=== PATIENT | female | born 1980 | race Caucasian/White ===

== ENCOUNTER 2018-12-12 14:46 | Observation (INO) ==
--- NOTE | 2018-12-11 22:16 | Discharge Summary ---
Orders not resulted at time of discharge: Pending orders 12/12/18 01:00 XR knee RT 1-2V [XR] Routine Hemoglobin and Hematocrit [HEME] Routine Date of Encounter: 12/16/18 Time of Encounter: 12:30 - Discharge Diagnosis (1) Osteoarthritis of right knee Priority: Primary Status: Chronic Qualifiers: Osteoarthritis type: unspecified Qualified Code(s): M17.11 - Unilateral primary osteoarthritis, right knee (2) Status post total right knee replacement Priority: Primary Status: Acute (3) Cerebral palsy Priority: Secondary Status: Chronic Qualifiers: Cerebral palsy type: unspecified type Qualified Code(s): G80.9 - Cerebral palsy, unspecified (4) Spasticity Priority: Secondary Status: Chronic (5) Presence of intrathecal pump Priority: Secondary Status: Chronic (6) Obesity Priority: Secondary Status: Chronic Qualifiers: Obesity type: unspecified obesity type Obesity classification: adult class 3 (BMI >= 40) Serious obesity comorbidity presence: unspecified whether serious comorbidity present Body mass index: unspecified BMI Qualified Code(s): E66.01 - Morbid (severe) obesity due to excess calories (7) HTN (hypertension) Priority: Secondary Status: Chronic Qualifiers: Hypertension type: unspecified Qualified Code(s): I10 - Essential (primary) hypertension - Hospital Course Hospital course: Ms. Villalpando is a 38 year old female Date of procedure: 12/12/18 Pre-op diagnosis: Right knee arthritis Post-op diagnosis: same Procedure: Right robotic-assisted Total knee replacement patient progressed well following TKR. Concern for DVT ruled out with doppler. Repeat labwork found to be in acceptable ranges. Discharge to [facility] for rehabilitation. Vital Signs Temp Pulse Resp BP Pulse Ox 12/15/18 14:26 98.3 F 104 20 126/78 98 12/15/18 11:25 98.0 F 110 24 123/79 99 12/15/18 06:35 98.8 F 96 16 114/76 99 12/15/18 02:54 99.3 F 105 16 112/71 98 12/14/18 23:03 98.5 F 111 17 113/74 98 12/14/18 20:11 98.6 F 96 17 113/73 99 Intake and Output 12/15/18 12/15/18 12/15/18 07:59 15:59 23:59 Intake Total 540 / 540 Output Total 300 / 300 800 / 800 Balance -300 / -300 -260 / -260 Intake: Oral 540 / 540 Output: Urine 300 / 300 800 / 800 Other: Meal Breakfast Percent of Meal Consumed 30% Stool Size Large Stool Consistency formed Stool Color Brown Short CBC 12/15/18 12/15/18 Range/Units 14:38 10:23 WBC 10.3 13.1 H (4.3-11.1) K/mcL Hgb 10.4 L 11.2 L (11.5-15.4) g/dL Hct 32.1 L 33.8 L (35.3-44.9) % Plt Count 303 406 H D (140-400) K/mcL Neutrophils # 7.3 9.8 H (1.6-8.9) K/mcL BMP 12/15/18 Range/Units 10:23 Sodium 136 (136-145) mEq/L Potassium 3.6 (3.5-5.1) mEq/L Chloride 100 (98-107) mEq/L Carbon Dioxide 26 (23-29) mEq/L BUN 7 (6-20) mg/dL Creatinine 0.41 L (0.60-1.20) mg/dL Glucose 87 (70-105) mg/dL Calcium 10.0 (8.6-10.3) mg/dL - Time Spent with Patient Total time spent providing and/or coordinating discharge services: - Discharge Medications Home Medications: Diphenoxylate/Atropine [Lomotil 2.5 mg/0.025 mg] 1 tab PO QID PRN 12/14/16 [History] Aspirin Enteric Coated [Aspirin EC] 325 mg PO BID 10 Days #20 tablet. 12/12/18 [Rx] Baclofen [Lioresal Intrathecal Pump] 1 each IT AD 12/12/18 [History] Docusate Sodium [Colace] 100 mg PO BID 5 Days #10 capsule 12/12/18 [Rx] Lisinopril [Zestril] 10 mg PO DAILY 12/12/18 [History] Loperamide [Imodium] 2 mg PO DAILY PRN 12/12/18 [History] OxyCODONE Immed Rel [Roxicodone 5 MG] 5 mg PO Q6HR PRN 7 Days #28 tablet 12/12/18 [Rx] Lidocaine Patch [Lidoderm 5% patch] 1 each TP DAILY adh..patch 12/15/18 [Rx] Naproxen 500 mg PO BID PRN 7 Days #14 12/15/18 [Rx] Allergies/Adverse Reactions: Allergy/AdvReac Type Severity Reaction Status Date / Time No Known Allergies Allergy Verified 12/12/18 15:08 Date of admission: 12/12/18 Primary care physician: Courtney Hoskins DO Discharging clinician: Jay Jay Sanches Anticipated date of discharge: 12/15/18 - VTE Documentation of Mechanical Device: Venous foot pump, device - Patient Status Disposition: Transfer Inpatient Rehab Fac Condition: Good Functional capacity at discharge: uses cane/walker Overall status at discharge: patient is progressing back to baseline - Discharge Instructions Follow Up With: Courtney Hoskins DO [Primary Care Provider] - Additional Instructions: Discharge Instructions: Total Knee Replacement Please call [facility] ([phone]), your Primary Care Physician, or report to the Emergency Room if you have any of the following symptoms: Nausea, vomiting, fever greater that 101.5, swelling, chest pain, shortness of breath, increased pain/redness/drainage/odor for your incision site, numbness/tingling, or any other concerning symptoms. ACTIVITY:Weight-bearing as tolerated. You may progress off support (crutches or walker) as tolerated. Incentive Spirometer 10 times an hour. MEDICATIONS: Upon discharge resume your home medications. Take all the medications as prescribed. Take a stool softener if taking narcotic pain medications. Stool softeners are only effective if you drink enough fluids. Drink 6-8 glass of water or fluids a day, unless this is not allowed for another health problem. Despite using stool softeners, if you haven't had a bowel movement in 3 days, please switch to a gentle laxative. Gentle laxatives are sold over the counter. You should have a bowel movement within 24 hours, if not call the office. You will be discharged from the hospital with a prescription for pain medication. You are encouraged to decrease the use of narcotic pain medication as tolerated. Should you require a refill, please call the office. [facility] prescribes narcotic pain medication for only 4-6 weeks after surgery. If you require pain medication beyond this time period, you may be referred to your Primary Care Physician or to the Pain Clinic for further evaluation. Plan ahead for refills on pain medication as many narcotics either need to be picked up at the office or mailed. It is best to call 48-72 hours in advance of needing a prescription refill so you don't run out of medication. To help control the post-operative pain, you may take NSAIDs (Aleve,Advil, Motrin, Ibuprofen, Naprosyn) or Tylenol as prescribed on the bottle in addition to the pain medication. ANTICOAGULATION (blood thinners): Continue your Aspirin, Lovenox or Coumadin as prescribed to help prevent a blood clot in the leg or in the lungs. As long as your incision remains dry and you tolerate the NSAIDs (Aleve, Advil, Motrin, ibuprofen, naprosyn), it is OK to use the NSAIDS while you are taking your anticoagulation medication. Should your incision start to drain, stop the NSAID and contact our office. Common symptoms of blood clot in the legs include: localized pain, swelling, calf tenderness, redness or discoloration of the skin. Blood clot in the lung symptoms include: shortness of breath, rapid pulse, sweating, and chest pain that worsens with deep breathing, coughing up blood, lightheadedness, feelings of anxiety. If you experience any of these symptoms notify your physician immediately, go to the emergency room, or if having trouble breathing, call 911. WOUND CARE: Leave the dressing on for 7 to 10days. You may change the dressing if it becomes saturated greater than 50%. Do not get the dressing wet at anytime. Wash your hands with antibacterial soap, rinse and dry prior to any wound care. If you have sally the visiting nurse or rehab facility can remove the stapes 10-14 days after surgery and place steri-strips across the wound. Leave the steri-strips in place until they fall off on their won. You may let water from the shower run on top of the steri-strips. If you do not have a visiting nurse or rehab facility, you will need to return to the office at 10-14 days for the sally to be removed. If you have itching or redness around the dressing call the office. FOLLOW-UP: Please follow up with your surgeon in the orthopedic clinic in 4 weeks from the day of surgery. If you have sally that need to be removed, you will need to come back to the office in 10-14 days from the day of surgery. - Diet and Activity Activity: as per physical therapy Diet: advance to your usual diet
[2018-12-12] MEDS ORDERED: CeFAZolin Syr 2,000MG/20 ML 2,000 MG/20 ML SYRINGE IVPB ONE (15:02)
[2018-12-12] MEDS ORDERED: Ondansetron 4 MG/2 ML VIAL IVP ONE (15:06)
[2018-12-12] MEDS ORDERED: *HR* Promethazine 25 MG/ML VIAL IVP PRN ×2 (15:06→20:06)
[2018-12-12] MEDS ORDERED: *HR* OxyCODONE Immed Rel 5 MG TABLET PO PRN (15:06)
--- NOTE | 2018-12-12 15:09 | Anesthesia Evaluation PreOp ---
Date of Encounter: 12/12/18 Time of Encounter: 15:09 - Past History Planned Operation: RIGHT TKA Cardiac History: HTN Pulmonary History: Denies Any Significant HX TRANSPORTATION ENGINEER History: Other (MILD CP, CHRONIC SPASMS, INTRATHECAL BACLOFEN PUMP) Other Medical History: Other (MORBID OBESITY, BMI 41) Anesthesia History: No Prior Anesthetic Complications, Past Anesthesia : No Test: Negative Alcohol Use: none Drug use: none Medications and Allergies Diphenoxylate/Atropine [Lomotil 2.5 mg/0.025 mg] 1 tab PO QID PRN 12/14/16 [History] Aspirin Enteric Coated [Aspirin EC] 325 mg PO BID 10 Days #20 tablet.dr 12/12/18 [Rx] Baclofen [Lioresal Intrathecal Pump] 1 each IT AD 12/12/18 [History] Docusate Sodium [Colace] 100 mg PO BID 5 Days #10 capsule 12/12/18 [Rx] Lisinopril [Zestril] 10 mg PO DAILY 12/12/18 [History] Loperamide [Imodium] 2 mg PO DAILY PRN 12/12/18 [History] Naproxen 500 mg PO BID 12/12/18 [History] OxyCODONE Immed Rel [Roxicodone 5 MG] 5 mg PO Q6HR PRN 7 Days #28 tablet 12/12/18 [Rx] Allergy/AdvReac Type Severity Reaction Status Date / Time No Known Allergies Allergy Verified 12/12/18 15:08 - Meds/Allergy Pre-op Review Medications Reviewed: Yes Allergies Reviewed: Yes Beta Blockers on Current Med List: No Anesthesia Results - Labs Laboratory Tests 12/01/18 12/01/18 15:43 15:43 Hgb 14.0 Plt Count 375 Potassium 3.8 Creatinine 0.41 L Est GFR (Non-Af Amer) > 60 Anesthesia Exam Vital Signs/O2 Sat/Glucose, Most Recent Temp Pulse Resp BP Pulse Ox 97.8 F 106 18 132/81 99 12/12/18 15:16 12/12/18 15:16 12/12/18 15:16 12/12/18 15:16 12/12/18 15:16 Weight: 102 KG - BMI 41 NPO (# of Hours): > 8 - HEENT Mallampati: I Teeth: Normal Oral Opening: Greater than 3 - Cardiac Rhythm: Regular - Pulmonary Breath Sounds: bilateral Clear Respiratory Effort: Symmetrical Anesthesia Assess/Plan ASA Score: 3 Anesthetic Plan: General, Regional Nerve Block Regional Nerve Block Plan: HARRIS Trimble Reason for No Neuroaxial/Regional Block: Other (INTRATHECAL PUMP, AGE PREDISPOSITION FOR PDPH) Monitoring Plan: Standard Monitors Recovery Plan: PACU
[2018-12-12] MEDS ORDERED: Ringers Solution, Lactated 1,000 ML IVC SCH ×2 (15:15→20:06)
[2018-12-12] MEDS ORDERED: Lidocaine -MPF 2% 2 ML VIAL ONE (15:23)
[2018-12-12] MEDS ORDERED: *HR* Midazolam HCl 2 MG/2 ML VIAL ONE (15:23)
[2018-12-12] MEDS ORDERED: Ondansetron 4 MG/2 ML VIAL ONE (15:23)
[2018-12-12] MEDS ORDERED: *HR* Propofol 200 MG/20 ML VIAL IVP ONE (15:23)
[2018-12-12] MEDS ORDERED: *HR* Rocuronium Bromide 50 MG/5 ML VIAL ONE (15:23)
[2018-12-12] MEDS ORDERED: *HR* Succinylcholine 200 MG/10 ML VIAL IVP ONE (15:23)
[2018-12-12] MEDS ORDERED: *HR* FentaNYL (PF) 100 MCG/2 ML VIAL ONE (15:23)
[2018-12-12] MEDS ORDERED: Dexamethasone 4 MG/ML VIAL ONE (15:23)
[2018-12-12] MEDS ORDERED: Acetaminophen IV 1,000 MG/100 ML INFUS..BTL IVPB ONE (15:24)
[2018-12-12] MEDS ORDERED: *HR* Methadone 10 MG TABLET PO ONE (15:24)
[2018-12-12] MEDS ORDERED: Pregabalin 75 MG CAPSULE PO ONE (15:24)
--- NOTE | 2018-12-12 15:34 | History & Physical Report ---
Date of Encounter: 12/12/18 Time of Encounter: 15:34 24 Hour HP Update - Instructions Instructions: If the History and Physical is less than 30 days old and was completed prior to A.M. admission and or procedure and has NOT been updated on calendar day of procedure please complete this update prior to performing procedure. - Update Patient reports changes in Medical Condition: No Changes in examination, assessment, or condition: No Changes in Medication: No Preop tests/diagnostics Reviewed: Yes Surgery Remains Indicated: Yes Consent for Planned Operative Procedure(s) Verified: Yes - Pre-Operative Checklist Preoperative Checklist Indicated: No Prophylactic Antibiotic Ordered: Yes Is VTE Prophylaxis Indicated?: Yes
[2018-12-12] MEDS ORDERED: Ethanol\\Acetic Acid\\Na Ace\\Ben 1,000 ML IRRIG.SOLN IR ONE (15:42)
[2018-12-12] MEDS ORDERED: ROPIVACAINE HCL/PF 0.5% 30 ML VIAL ONE (15:53)
[2018-12-12] MEDS ORDERED: Bupivacaine/Clonidine Syringe 1 EACH SYRINGE ONE (15:54)
[2018-12-12] MEDS ORDERED: KETAMINE HCL 50 MG/ML SYRINGE IV ONE (15:58)
[2018-12-12] MEDS ORDERED: Tranexamic Acid 1,000 MG/10 ML VIAL ONE (16:43)
[2018-12-12] MEDS ORDERED: *HR* HYDROMORPHONE 2 MG/ML VIAL ONE (16:50)
--- NOTE | 2018-12-12 17:05 | Anesthesia Procedures ---
Date of Encounter: 12/12/18 Time of Encounter: 16:21 Procedures: Anesthesia - Nerve Block Procedure Date: 12/12/18 Time: 16:21 Allergies/Adv Reactions: Allergies No Known Allergies Allergy (Verified 12/12/18 15:08) Pre-op Diagnosis: right knee arthropathy Surgical Procedure: right total knee arthroplasty, robotic Checklist: Correct Patient Identifier, Correct procedure, History checked Correct side: Right Blood Thinner: No Monitor Applied: EKG, BP, Pulse Oximetry Supplemental Oxygen via Nasal Cannula (L/min): 2 Sedation: Versed (mg): 2 Sedation: Fentanyl (mcg): 100 Indication: Post Op Analgesia Pre-op Neuro Deficits: No Block Type: Other (addcutor canal and ipack) Catheter placed: No Sterile Technique: Yes Ultrasound used: Yes Anatomy identified: Yes Visual spread of Local: Yes Blood on Needle Aspiration: No Smooth Injection of Local: Yes Pain with Injection of Local: No Prep: Chlorhexadine Needle: 22 x 50 mm Stimuplex Local: 0.25% Bupivicaine w/Clonidine 20 mcg/cc, Ropivacaine Volume (cc): 50 Number of Attempts: 1 Complications: None/effective block
[2018-12-12] MEDS ORDERED: Ketorolac 30 MG/ML VIAL ONE (17:10)
--- NOTE | 2018-12-12 17:30 | Orthopedic Operative Note ---
Date of procedure: 12/12/18 Pre-op diagnosis: Right knee arthritis Post-op diagnosis: same Procedure: Procedure: Right robotic-assisted Total knee replacement Estimated blood loss: 200 cc Hardware: Metal and polyethylene replacement. [place] Femur: 4 Tibia: 4 TS insert: 9 Patella: 36 Exam Under anesthesia: 17 degree flexion contracture 2 degrees varus as calculated by the robot full flexion and no instability Procedural Notes: Grade 4 arthritic changes all 3 compartments. Operative procedure: The patient was brought to the operating room and placed on the operating room table. After general anesthesia was administered the operative knee was examined. Findings were noted in the exam under anesthesia. The operative extremity was prepped and draped in sterile surgical fashion. The patient received IV antibiotics prior to skin incision. A standard midline incision was made centered over the patella. The incision was made through the skin and subcutaneous tissue. A medial parapatellar tendon approach was performed. Care was taken to preserve tissue along the medial aspect of the patella. And to protect the patella tendon. The deep MCL was released off the medial tibia. The infra patella fat pad was excised. The patella was everted and cut was made at the level of the insertion of the quadriceps and patella tendon. The patella was sized the guide was seated and the lug holes are drilled. Knee was brought into flexion. Patient noted to have grade 4 arthritic changes all 3 compartments. Steinmann pins were placed in the tibia and the femur for the tibial and femoral arrays respectively. Checkpoints were also placed in the tibia and the femur for calculation purposes. The knee including the femur and the tibial registered. Osteophytes, ACL and PCL were excised at this point. Extension and flexion were assessed with a valgus stress components were adjusted on the computer to balance the knee. Femoral cuts were made first with robotic assistance, these included the anterior cut posterior cuts chamfer cuts. Tibial cut was then performed with robotic assistance as well. Bone fragments were removed, as well as the medial and lateral meniscus. The size 4 femoral guide was seated box cut was made lug holes are drilled. The size 4 tibial tray was seated and prepared with the fin cutter. Trial reduction with the 9 TS Giovanna revealed extension of 0 degree and 3 degree varus full flexion. No varus valgus instability. Trial reduction revealed excellent patella tracking. All trial components were removed all bony surfaces were irrigated. The Tibia was seated followed by the femur, The selected Giovanna size was seated and secured patella. Patient had similar findings for motion and stability. The knee was closed by the PA. The knee was then irrigated out with 2 L of pulse irrigation. The extensor mechanism was closed with #2 FiberWire suture and #2 PDS suture. The subcutaneous tissue was then irrigated and closed deep with #1 PDS suture superficially with 0 PDS suture and skin was closed with zip tie The patient was then placed in a sterile dressing and a postoperative brace extubated and transferred to recovery room in stable condition. Anesthesia: GETA Surgeon: Jay Jay Sanches Was there an assistant clinical nurse manager present: No Estimated blood loss (cc): 200 Condition: stable Disposition: PACU
[2018-12-12] MEDS ORDERED: *HR* PHENYLEPHRINE 1,000 MCG/10 ML SYRINGE IVP ONE (17:36)
[2018-12-12] MEDS: *HR* HYDROmorphone (PF) 1 MG/ML SYRINGE IVP PRN ×2 (18:21→19:00)
[2018-12-12 18:44] LABS: Hematocrit 34.3 % (35.3-44.9); Hemoglobin 11.5 g/dL (11.5-15.4)
--- NOTE | 2018-12-12 19:32 | Anesthesia Evaluation Post Op ---
Date of Encounter: 12/12/18 Time of Encounter: 19:30 - Vital Signs Vital Signs: Vital Signs/O2 Sat/Glucose, Most Current Temp Pulse Resp BP Pulse Ox 12/12/18 19:19 98.9 F 98 12 147/78 100 12/12/18 19:09 98.9 F 98 12 149/61 100 12/12/18 18:59 96 12 138/71 100 12/12/18 18:49 99 12 126/75 100 12/12/18 18:39 98.9 F 101 12 129/66 100 12/12/18 18:29 93 12 131/68 97 12/12/18 18:19 93 12 127/72 97 12/12/18 18:09 98.4 F 92 12 129/74 98 12/12/18 16:18 105 139/85 100 - Lungs Lungs: Clear Ascult./Percussion - Airway Airway: Non-obstructed - Cardiovascular Regular Rate - Mental Status Mental Status: Alert & Oriented, Answers Appropriately - Pain Pain Scale: 1 - Nausea Vomiting Nausea Vomiting: Not Present - Hydration Hydration: Ice chips - Discharge PostOp Status: Transfer Patient to floor
[2018-12-12] MEDS ORDERED: Naloxone 0.4 MG/ML INJ IVP PRN (20:06)
[2018-12-12] MEDS ORDERED: Diphenoxylate/Atropine 1 TAB TABLET PO PRN (20:06)
[2018-12-12] MEDS ORDERED: traMADol 50 MG TABLET PO PRN (20:06)
[2018-12-12] MEDS ORDERED: Sennosides 8.6 MG TABLET PO PRN (20:06)
[2018-12-12] MEDS ORDERED: Temazepam 15 MG CAPSULE PO PRN (20:06)
[2018-12-12] MEDS ORDERED: MOM Conc 10 ML UD.LIQ PO PRN (20:06)
[2018-12-12] MEDS ORDERED: Ondansetron 4 MG/2 ML VIAL IVP PRN (20:06)
[2018-12-12] MEDS: Ascorbic Acid 500 MG TABLET PO SCH (22:33)
[2018-12-12] MEDS: *HR* Enoxaparin 30 MG/0.3 ML SYRINGE SQ SCH (22:33)
[2018-12-12] MEDS: BACLOFEN IT SCH (22:34)
[2018-12-12] MEDS: *HR* OxyCODONE/APAP 5/325 TABLET PO PRN (22:36)
[2018-12-13] MEDS: *HR* Enoxaparin 30 MG/0.3 ML SYRINGE SQ SCH ×2 (05:11→17:20)
[2018-12-13] MEDS ORDERED: Chloraseptic Spray 177 ML BOTTLE MM PRN (06:44)
--- NOTE | 2018-12-13 06:52 | Orthopedics Progress Note ---
Date of Encounter: 12/13/18 Time of Encounter: 06:52 Subjective Interval history: Patient was seen this morning doing well without complaints. Afebrile vital signs stable. Operative extremity: Neurovascularly intact Dressing clean dry and intact Calves nontender Assessment and plan: Continue with postoperative care Hematocrit 34 Objective Vital signs: Vital Signs Temp Pulse Resp BP Pulse Ox 12/13/18 04:07 98.7 F 107 16 120/76 96 12/12/18 23:15 98.5 F 110 16 122/78 95 12/12/18 22:15 92 16 125/80 97 12/12/18 21:15 77 16 147/77 97 12/12/18 20:45 78 14 108/43 96 12/12/18 20:15 97.7 F 96 14 131/82 97 12/12/18 19:19 98.9 F 98 12 147/78 100 12/12/18 19:09 98.9 F 98 12 149/61 100 12/12/18 18:59 96 12 138/71 100 12/12/18 18:49 99 12 126/75 100 12/12/18 18:39 98.9 F 101 12 129/66 100 12/12/18 18:29 93 12 131/68 97 12/12/18 18:19 93 12 127/72 97 12/12/18 18:09 98.4 F 92 12 129/74 98 12/12/18 16:18 105 139/85 100 12/12/18 15:16 97.8 F 106 18 132/81 99 Intake and Output 12/12/18 12/12/18 12/13/18 15:59 23:59 07:59 Intake Total 100 / 100 100 / 100 Output Total 400 / 400 400 / 400 Balance -300 / -300 -300 / -300 Intake: IV Fluids 100 / 100 Ancef 2,000 MG In 0.9 % Sodium 100 / 100 Chloride 100 ML @ 200 mls/hr IVPB Q8H [facility] Rx#:[id number] Oral 100 / 100 Output: Urine 200 / 200 400 / 400 Estimated Blood Loss 200 / 200 Other: Weight 102.058 kg 102.1 kg Patient Weight 12/13/18 23:59 Weight 102.1 kg - Labs CBC & BMP: 12/12/18 18:24 Labs: Abnormal lab results Hct 34.3 % (35.3-44.9) L 12/12/18 18:24 - VTE Documentation of Mechanical Device: Venous foot pump, device Consult Discharge Plan - Plan Referrals: Courtney Hoskins DO [Primary Care Provider] - Prescriptions: Aspirin Enteric Coated [Aspirin EC] 325 mg PO BID 10 Days #20 tablet. Docusate Sodium [Colace] 100 mg PO BID 5 Days #10 capsule OxyCODONE Immed Rel [Roxicodone 5 MG] 5 mg PO Q6HR PRN 7 Days #28 tablet PRN Reason: Severe Pain
[2018-12-13] MEDS: Multivit/Ca/Min/Fe/FA 1 TAB TABLET PO SCH (09:45)
[2018-12-13] MEDS: Ascorbic Acid 500 MG TABLET PO SCH ×2 (09:45→16:53)
[2018-12-13] MEDS: *HR* OxyCODONE/APAP 5/325 TABLET PO PRN ×2 (09:53→18:11)
[2018-12-13 10:35] LABS: Hematocrit 32.5 % (35.3-44.9); Hemoglobin 11.2 g/dL (11.5-15.4)
[2018-12-13 10:55] LABS: BUN/Creatinine Ratio 28 (6-26); Blood Urea Nitrogen 13 mg/dL (6-20); Calcium 8.9 mg/dL (8.6-10.3); Carbon Dioxide 22 mEq/L (23-29); Chloride 104 mEq/L (98-107); Glucose 137 mg/dL (70-105); Osmolality,Calculated 284 (280-300); Potassium 4.5 mEq/L (3.5-5.1); Sodium 136 mEq/L (136-145); eGFR For Non-African Americans > 60 (> 60)
--- NOTE | 2018-12-13 12:55 | Event Note ---
Date of Encounter: 12/13/18 Time of Encounter: 12:55 POD#1 Date of procedure: 12/12/18 Pre-op diagnosis: Right knee arthritis Post-op diagnosis: same Procedure: Right robotic-assisted Total knee replacement Patient seen at bedside. Spouse at bedside. A&Ox3 Dressing and incision c/i - bleeding noted from distal incision. Zipline and sally intact No calf tenderness, erythema, or warmth. Neurovascularly intact b/l LE. Labwork and medications reviewed. Pain control: Adequate Participating in PT. All questions and concerns addressed. Educated on use of incentive spirometer, ambulation, and hydration. Patient educated on post-operative restrictions and care. Addressed: bleeding - [place] placed to distal incision. Dressings placed. Encourage knee immobilization over night with pressure dressing. D/C plan:. ECF
--- NOTE | 2018-12-13 12:57 | Physician Discharge Referral ---
ExtendedCare Referral Info Transfer To: [facility] Provider in Charge: Dr. Jay Jay Sanches - Diagnosis (1) Osteoarthritis of right knee Priority: Primary Status: Chronic (2) Status post total right knee replacement Priority: Primary Status: Acute (3) Cerebral palsy Priority: Secondary Status: Chronic (4) Spasticity Priority: Secondary Status: Chronic (5) Presence of intrathecal pump Priority: Secondary Status: Chronic (6) Obesity Priority: Secondary Status: Chronic (7) HTN (hypertension) Priority: Secondary Status: Chronic Expected Duration of Placement: less than 30 days Prognosis: Fair Aware of Diagnosis: Patient Aware of Prognosis: Patient - Transfer Medications Prescriptions: OxyCODONE Immed Rel [Roxicodone 5 MG] 5 mg PO Q6HR PRN 7 Days #28 tablet PRN Reason: Severe Pain Aspirin Enteric Coated [Aspirin EC] 325 mg PO BID 10 Days #20 tablet. Docusate Sodium [Colace] 100 mg PO BID 5 Days #10 capsule Home Medications: Diphenoxylate/Atropine [Lomotil 2.5 mg/0.025 mg] 1 tab PO QID PRN 12/14/16 [History] Aspirin Enteric Coated [Aspirin EC] 325 mg PO BID 10 Days #20 tablet. 12/12/18 [Rx] Baclofen [Lioresal Intrathecal Pump] 1 each IT AD 12/12/18 [History] Docusate Sodium [Colace] 100 mg PO BID 5 Days #10 capsule 12/12/18 [Rx] Lisinopril [Zestril] 10 mg PO DAILY 12/12/18 [History] Loperamide [Imodium] 2 mg PO DAILY PRN 12/12/18 [History] Naproxen 500 mg PO BID 12/12/18 [History] OxyCODONE Immed Rel [Roxicodone 5 MG] 5 mg PO Q6HR PRN 7 Days #28 tablet 12/12/18 [Rx] Allergies/Adverse Reactions: Allergy/AdvReac Type Severity Reaction Status Date / Time No Known Allergies Allergy Verified 12/12/18 15:08 - Respiratory Orders Smoking Cessation: Smoking cessation has been advised. For more information, call the [place] Tobacco Quit Line at 4-642-JLRI-NOW. - Ancillary Orders May use pressure relief devices daily prn, May go on LUIS w/family/respon alliance party w/meds at nurse discretion PRN, May consult with Dentist, Dry Cell Sealer, Quality Engineer Medical Device PRN - Advance Directives Living Will: No Power of Handle Bender for Health Care: No - Mobility Orders Chair, Ambulate - Rehabiliation Orders Rehab Potential: Good Rehab Orders: Evaluation for Physical Therapy, Evaluation for Occupational Therapy Other: Total Knee replacement Precautions x 6 weeks Apply cold therapy wrap 3-6x/day for 20 minutes at a time. Encourage ambulation throughout the day and incentive spirometer 10x/hour. Elevate affected extremity above heart as tolerated. Brace: Wear knee immobilizer at night x 2 weeks. Opsite placed. Keep dressing intact until first follow up appointment. If g reater than 50% saturated, notify office, remove dressing and place appropriate dressing back in place. Leave Zipline intact. Opsite dressing is water resistant, not water-proof. OK to shower, but do not get dressing wet. - Treatments Skin tear care topically daily PRN per policy - Diet Orders Regular CERTIFICATION: I certify that the transfer of the above named patient to an Extended Care Facility is necessary for the continuing treatment of the diagnosis listed. The above information is true and accurate reflection of patient's current condition. Confidential - Redisclosure prohibited without a patient's written consent.
[2018-12-13] MEDS: BACLOFEN IT SCH (21:34)
[2018-12-14] MEDS: *HR* OxyCODONE Immed Rel 5 MG TABLET PO PRN ×3 (04:14→13:00)
[2018-12-14 05:07] LABS: Bilirubin,Urine Negative (Negative); Blood,Urine Negative (Negative); Clarity,Urine Clear (Clear); Color,Urine Yellow (Yellow); Glucose,Urine (UA) Normal (Normal); Ketones,Urine Negative (Negative); Leukocyte Esterase,Urine Negative (Negative); Nitrite,Urine Negative (Negative); Protein,Urine Negative (Neg-Trace); Specific Gravity,Urine 1.008 (1.010-1.025); Urobilinogen,Urine Normal (Normal)
[2018-12-14 08:03] LABS: Basophils % 0.2 %; Eosinophils % 0.1 %; Hematocrit 33.4 % (35.3-44.9); Hemoglobin 10.6 g/dL (11.5-15.4); Immature Granulocytes % 0.4 % (0-4); Lymphocytes # 1.6 K/mcL (0.6-4.6); Lymphocytes % 15.8 %; Mean Corpuscular HGB Conc 31.7 g/dL (31.6-35.5); Mean Corpuscular Hemoglobin 29.2 pg (28.0-33.3); Mean Platelet Volume 11.2 fL (9.4-12.4); Monocytes # 0.9 K/mcL (0.0-1.3); Monocytes % 9.1 %; Neutrophils # 7.7 K/mcL (1.6-8.9); Platelet Count 162 K/mcL (140-400); Red Blood Count 3.63 M/mcL (3.82-4.97); Red Cell Distribution Width 12.3 % (11.5-14.5); Segmented Neutrophils % 74.4 %
[2018-12-14 08:19] LABS: BUN/Creatinine Ratio 22 (6-26); Blood Urea Nitrogen 8 mg/dL (6-20); Calcium 8.6 mg/dL (8.6-10.3); Carbon Dioxide 22 mEq/L (23-29); Chloride 104 mEq/L (98-107); Glucose 116 mg/dL (70-105); Osmolality,Calculated 277 (280-300); Potassium 4.1 mEq/L (3.5-5.1); Sodium 134 mEq/L (136-145); eGFR For Non-African Americans > 60 (> 60)
--- NOTE | 2018-12-14 08:21 | Orthopedics Progress Note ---
Date of Encounter: 12/14/18 Time of Encounter: 08:20 Subjective Interval history: Patient was seen this morning doing well without complaints. Afebrile vital signs stable. Operative extremity: Neurovascularly intact Dressing clean dry and intact Calves nontender Assessment and plan: Continue with postoperative care Hematocrit 33 Objective Vital signs: Vital Signs Temp Pulse Resp BP Pulse Ox 12/14/18 07:01 97.9 F 109 18 100/62 94 12/14/18 04:13 98.4 F 103 17 138/80 98 12/13/18 23:17 98.3 F 106 18 132/82 99 12/13/18 18:43 98.1 F 110 17 122/77 100 12/13/18 15:43 98.1 F 102 15 108/68 98 12/13/18 11:14 99.6 F 105 14 98/55 98 Intake and Output 12/13/18 12/14/18 12/14/18 23:59 07:59 15:59 Intake Total 550 / 550 Output Total 300 / 300 450 / 450 Balance 250 / 250 -450 / -450 Intake: Oral 550 / 550 Output: Urine 300 / 300 450 / 450 Other: Meal Dinner Percent of Meal Consumed 75% # Urine Diapers 1 - Labs CBC & BMP: 12/14/18 07:42 12/14/18 07:42 Labs: Abnormal lab results RBC 3.63 M/mcL (3.82-4.97) L 12/14/18 07:42 Hgb 10.6 g/dL (11.5-15.4) L 12/14/18 07:42 Hct 33.4 % (35.3-44.9) L 12/14/18 07:42 Sodium 134 mEq/L (136-145) L 12/14/18 07:42 Carbon Dioxide 22 mEq/L (23-29) L 12/14/18 07:42 Creatinine 0.36 mg/dL (0.60-1.20) L 12/14/18 07:42 Glucose 116 mg/dL (70-105) H 12/14/18 07:42 Calculated Osmolality 277 (280-300) L 12/14/18 07:42 Ur Specific [place] 1.008 (1.010-1.025) L 12/14/18 04:55 - VTE Documentation of Mechanical Device: Venous foot pump, device Consult Discharge Plan - Plan Referrals: Courtney Hoskins DO [Primary Care Provider] - Prescriptions: Aspirin Enteric Coated [Aspirin EC] 325 mg PO BID 10 Days #20 tablet. Docusate Sodium [Colace] 100 mg PO BID 5 Days #10 capsule OxyCODONE Immed Rel [Roxicodone 5 MG] 5 mg PO Q6HR PRN 7 Days #28 tablet PRN Reason: Severe Pain
[2018-12-14] MEDS: Ascorbic Acid 500 MG TABLET PO SCH ×2 (08:27→17:03)
[2018-12-14] MEDS: Multivit/Ca/Min/Fe/FA 1 TAB TABLET PO SCH (08:27)
[2018-12-14] MEDS: *HR* Enoxaparin 30 MG/0.3 ML SYRINGE SQ SCH ×2 (08:39→17:04)
--- NOTE | 2018-12-14 13:05 | Event Note ---
Date of Encounter: 12/14/18 Time of Encounter: 13:05 POD#2 Date of procedure: 12/12/18 Pre-op diagnosis: Right knee arthritis Post-op diagnosis: same Procedure: Right robotic-assisted Total knee replacement Patient seen at bedside. Spouse at bedside. A&Ox3 Dressing and incision c/i Zipline and sally intact No calf tenderness, erythema, or warmth. Neurovascularly intact b/l LE. Labwork and medications reviewed. Pain control: Adequate Participating in PT. All questions and concerns addressed. Educated on use of incentive spirometer, ambulation, and hydration. Patient educated on post-operative restrictions and care. Addressed: bleeding - [place] placed to distal incision 12/14 which ceased bleeding. D/c plan: ECF pending auth
[2018-12-14] MEDS: BACLOFEN IT SCH (21:33)
[2018-12-15] MEDS: *HR* OxyCODONE/APAP 5/325 TABLET PO PRN ×3 (05:04→18:36)
[2018-12-15] MEDS: *HR* Enoxaparin 30 MG/0.3 ML SYRINGE SQ SCH ×2 (05:05→18:32)
--- NOTE | 2018-12-15 07:59 | Orthopedics Progress Note ---
Date of Encounter: 12/15/18 Time of Encounter: 07:58 Subjective Interval history: Patient was seen this morning doing well without complaints. Afebrile vital signs stable. Operative extremity: Neurovascularly intact Dressing clean dry and intact Calves nontender Assessment and plan: Continue with postoperative care Objective Vital signs: Vital Signs Temp Pulse Resp BP Pulse Ox 12/15/18 06:35 98.8 F 96 16 114/76 99 12/15/18 02:54 99.3 F 105 16 112/71 98 12/14/18 23:03 98.5 F 111 17 113/74 98 12/14/18 20:11 98.6 F 96 17 113/73 99 12/14/18 15:32 99.3 F 116 16 116/72 99 12/14/18 12:13 98.2 F 109 16 104/62 100 Intake and Output 12/14/18 12/14/18 12/15/18 15:59 23:59 07:59 Intake Total 120 / 120 270 / 270 Output Total 650 / 650 300 / 300 Balance 120 / 120 -380 / -380 -300 / -300 Intake: Oral 120 / 120 270 / 270 Output: Urine 650 / 650 300 / 300 Other: Meal Breakfast Dinner Percent of Meal Consumed 35% 60% # Voids 2 1 - Labs CBC & BMP: 12/14/18 07:42 12/14/18 07:42 Labs: Abnormal lab results RBC 3.63 M/mcL (3.82-4.97) L 12/14/18 07:42 Hgb 10.6 g/dL (11.5-15.4) L 12/14/18 07:42 Hct 33.4 % (35.3-44.9) L 12/14/18 07:42 Sodium 134 mEq/L (136-145) L 12/14/18 07:42 Carbon Dioxide 22 mEq/L (23-29) L 12/14/18 07:42 Creatinine 0.36 mg/dL (0.60-1.20) L 12/14/18 07:42 Glucose 116 mg/dL (70-105) H 12/14/18 07:42 Calculated Osmolality 277 (280-300) L 12/14/18 07:42 Ur Specific [place] 1.008 (1.010-1.025) L 12/14/18 04:55 - VTE Documentation of Mechanical Device: Venous foot pump, device Consult Discharge Plan - Plan Referrals: Courtney Hoskins DO [Primary Care Provider] -
[2018-12-15] MEDS: Multivit/Ca/Min/Fe/FA 1 TAB TABLET PO SCH (09:22)
[2018-12-15] MEDS: Ascorbic Acid 500 MG TABLET PO SCH ×2 (09:25→18:32)
[2018-12-15 11:20] LABS: Basophils % 0.3 %; Eosinophils % 0.2 %; Hematocrit 33.8 % (35.3-44.9); Hemoglobin 11.2 g/dL (11.5-15.4); Immature Granulocytes % 0.5 % (0-4); Lymphocytes # 1.8 K/mcL (0.6-4.6); Lymphocytes % 13.7 %; Mean Corpuscular HGB Conc 33.1 g/dL (31.6-35.5); Mean Corpuscular Hemoglobin 28.9 pg (28.0-33.3); Mean Corpuscular Volume 87.3 fL (83.0-100.0); Mean Platelet Volume 11.4 fL (9.4-12.4); Monocytes # 1.4 K/mcL (0.0-1.3); Monocytes % 10.8 %; Neutrophils # 9.8 K/mcL (1.6-8.9); Platelet Count 406 K/mcL (140-400); Red Blood Count 3.87 M/mcL (3.82-4.97); Red Cell Distribution Width 12.4 % (11.5-14.5); Segmented Neutrophils % 74.5 %
[2018-12-15 11:32] LABS: BUN/Creatinine Ratio 17 (6-26); Blood Urea Nitrogen 7 mg/dL (6-20); Carbon Dioxide 26 mEq/L (23-29); Chloride 100 mEq/L (98-107); Glucose 87 mg/dL (70-105); Osmolality,Calculated 279 (280-300); Potassium 3.6 mEq/L (3.5-5.1); Sodium 136 mEq/L (136-145); eGFR For Non-African Americans > 60 (> 60)
--- NOTE | 2018-12-15 12:26 | Event Note ---
Addendum entered and electronically signed by Tashia Montoya PAC 12/15/18 16:45: POD#3 Date of procedure: 12/12/18 Pre-op diagnosis: Right knee arthritis Post-op diagnosis: same Procedure: Right robotic-assisted Total knee replacement Patient seen at bedside. States pain improved control with new regimen, still wondering if pump can be adjusted. Informed patient Dr. Barboza is out of office, will [facility] - pump nurse re: patient's request. A&Ox3 Dressing and incision c/i Zipline and sally intact No calf tenderness, erythema, or warmth. Neurovascularly intact b/l LE. Labwork and medications reviewed. Pain control: Adequate Participating in PT. All questions and concerns addressed. Educated on use of incentive spirometer, ambulation, and hydration. Patient educated on post-operative restrictions and care. Addressed: bleeding - [place] placed to distal incision 12/14 which ceased bleeding. No further drainage. Doppler negative. Repeat labwork WNL. D/c plan: ECF pending auth - patient can discharge per SW in morning of 12/16 Short CBC 12/15/18 12/15/18 Range/Units 14:38 10:23 WBC 10.3 13.1 H (4.3-11.1) K/mcL Hgb 10.4 L 11.2 L (11.5-15.4) g/dL Hct 32.1 L 33.8 L (35.3-44.9) % Plt Count 303 406 H D (140-400) K/mcL Neutrophils # 7.3 9.8 H (1.6-8.9) K/mcL BMP 12/15/18 Range/Units 10:23 Sodium 136 (136-145) mEq/L Potassium 3.6 (3.5-5.1) mEq/L Chloride 100 (98-107) mEq/L Carbon Dioxide 26 (23-29) mEq/L BUN 7 (6-20) mg/dL Creatinine 0.41 L (0.60-1.20) mg/dL Glucose 87 (70-105) mg/dL Calcium 10.0 (8.6-10.3) mg/dL Vital Signs Temp Pulse Resp BP Pulse Ox 12/15/18 14:26 98.3 F 104 20 126/78 98 12/15/18 11:25 98.0 F 110 24 123/79 99 12/15/18 06:35 98.8 F 96 16 114/76 99 12/15/18 02:54 99.3 F 105 16 112/71 98 12/14/18 23:03 98.5 F 111 17 113/74 98 12/14/18 20:11 98.6 F 96 17 113/73 99 Intake and Output 12/15/18 12/15/18 12/15/18 07:59 15:59 23:59 Intake Total 540 / 540 Output Total 300 / 300 800 / 800 Balance -300 / -300 -260 / -260 Intake: Oral 540 / 540 Output: Urine 300 / 300 800 / 800 Other: Meal Breakfast Percent of Meal Consumed 30% Stool Size Large Stool Consistency formed Stool Color Brown Original Note: Date of Encounter: 12/15/18 Time of Encounter: 12:25 elevated platelet count, increased pain - stat d dimer and doppler
[2018-12-15 14:58] LABS: Basophils % 0.3 %; Eosinophils % 0.2 %; Hematocrit 32.1 % (35.3-44.9); Hemoglobin 10.4 g/dL (11.5-15.4); Immature Granulocytes % 0.4 % (0-4); Lymphocytes # 2.1 K/mcL (0.6-4.6); Lymphocytes % 20.7 %; Mean Corpuscular HGB Conc 32.4 g/dL (31.6-35.5); Mean Corpuscular Hemoglobin 28.7 pg (28.0-33.3); Mean Corpuscular Volume 88.7 fL (83.0-100.0); Mean Platelet Volume 11.3 fL (9.4-12.4); Monocytes # 0.8 K/mcL (0.0-1.3); Monocytes % 7.3 %; Neutrophils # 7.3 K/mcL (1.6-8.9); Platelet Count 303 K/mcL (140-400); Red Blood Count 3.62 M/mcL (3.82-4.97); Red Cell Distribution Width 12.3 % (11.5-14.5); Segmented Neutrophils % 71.1 %
[2018-12-16] MEDS: *HR* OxyCODONE/APAP 5/325 TABLET PO PRN ×2 (00:26→08:26)
[2018-12-16] MEDS: BACLOFEN IT SCH (05:10)
[2018-12-16] MEDS: *HR* Enoxaparin 30 MG/0.3 ML SYRINGE SQ SCH (05:25)
--- NOTE | 2018-12-16 06:43 | Orthopedics Progress Note ---
Date of Encounter: 12/16/18 Time of Encounter: 06:43 Subjective Interval history: Patient was seen this morning doing well still with discomfort in her upper thigh Afebrile vital signs stable. Operative extremity: Neurovascularly intact Dressing clean dry and intact Calves nontender Assessment and plan: Continue with postoperative care Doppler negative plan for discharge today Objective Vital signs: Vital Signs Temp Pulse Resp BP Pulse Ox 12/16/18 04:06 98.9 F 100 15 114/81 96 12/15/18 22:46 98.3 F 113 16 113/71 93 12/15/18 19:43 99.2 F 115 17 112/74 99 12/15/18 14:26 98.3 F 104 20 126/78 98 12/15/18 11:25 98.0 F 110 24 123/79 99 Intake and Output 12/15/18 12/15/18 12/16/18 15:59 23:59 07:59 Intake Total 540 / 540 300 / 300 100 / 100 Output Total 800 / 800 Balance -260 / -260 300 / 300 100 / 100 Intake: Oral 540 / 540 300 / 300 100 / 100 Output: Urine 800 / 800 Other: Meal Breakfast Percent of Meal Consumed 30% Stool Size Large Stool Consistency formed Stool Color Brown # Voids 0 1 - Labs CBC & BMP: 12/15/18 14:38 12/15/18 10:23 Labs: Abnormal lab results RBC 3.62 M/mcL (3.82-4.97) L 12/15/18 14:38 Hgb 10.4 g/dL (11.5-15.4) L 12/15/18 14:38 Hct 32.1 % (35.3-44.9) L 12/15/18 14:38 D-Dimer 1160 ng/mLFEU (0-500) H 12/15/18 14:38 Creatinine 0.41 mg/dL (0.60-1.20) L 12/15/18 10:23 Calculated Osmolality 279 (280-300) L 12/15/18 10:23 Ur Specific [place] 1.008 (1.010-1.025) L 12/14/18 04:55 - VTE Documentation of Mechanical Device: Venous foot pump, device Consult Discharge Plan - Plan Referrals: Courtney Hoskins DO [Primary Care Provider] -
[2018-12-16] MEDS: Ascorbic Acid 500 MG TABLET PO SCH (08:26)
[2018-12-16] MEDS: Multivit/Ca/Min/Fe/FA 1 TAB TABLET PO SCH (08:26)
[2018-12-16 11:52] VITALS: BP 106/62
== END 2018-12-16 12:55 ==
LOC: SAMDAY 14:46 → 3NENU 14:46
PROVIDERS: ADMIT Orthopaedic Surgery; ATTEND Orthopaedic Surgery